=== PATIENT | male | born 1980 | race Caucasian/White ===

== ENCOUNTER → 2021-05-11 13:29 | Outpatient (BNVA) | payer OTHER, SELFPAY | PROVIDERS: Visit Provider Physician Assistant Medical | DX: S46.911A Strain of unspecified muscle, fascia and tendon at shoulder and upper arm level, right arm, initial encounter (principal); X50.1XXA Overexertion from prolonged static or awkward postures, initial encounter | CPT/HCPCS: 99202 ==

== ENCOUNTER → 2021-05-18 11:09 | Outpatient (BNVA) | payer OTHER, SELFPAY | PROVIDERS: Visit Provider Internal Medicine | DX: M79.10 Myalgia, unspecified site (principal); M79.622 Pain in left upper arm; M79.621 Pain in right upper arm | CPT/HCPCS: 99213 ==

== ENCOUNTER → 2021-05-25 12:58 | Outpatient (BNVA) | payer OTHER, SELFPAY | PROVIDERS: Visit Provider Internal Medicine | DX: M79.18 Myalgia, other site (principal) | CPT/HCPCS: 99213 ==

== ENCOUNTER → 2021-06-15 14:14 | Outpatient (BNVA) | payer OTHER, SELFPAY | PROVIDERS: Visit Provider Internal Medicine | DX: S66.912D Strain of unspecified muscle, fascia and tendon at wrist and hand level, left hand, subsequent encounter (principal); S66.911D Strain of unspecified muscle, fascia and tendon at wrist and hand level, right hand, subsequent encounter; X58.XXXD Exposure to other specified factors, subsequent encounter | CPT/HCPCS: 99213 ==

== ENCOUNTER → 2021-07-06 13:27 | Outpatient (BNVA) | payer OTHER, SELFPAY | PROVIDERS: Visit Provider Internal Medicine | DX: M25.532 Pain in left wrist (principal); M25.531 Pain in right wrist; M79.632 Pain in left forearm; M79.631 Pain in right forearm | CPT/HCPCS: 99213 ==

== ENCOUNTER → 2021-07-20 13:56 | Outpatient (BNVA) | payer OTHER, SELFPAY | PROVIDERS: Visit Provider Internal Medicine | DX: M25.532 Pain in left wrist (principal); M25.531 Pain in right wrist; M79.632 Pain in left forearm; M79.631 Pain in right forearm | CPT/HCPCS: 99213 ==

== ENCOUNTER → 2021-07-27 13:02 | Outpatient (BNVA) | payer OTHER, SELFPAY | PROVIDERS: Visit Provider Internal Medicine | DX: M25.532 Pain in left wrist (principal); M25.531 Pain in right wrist | CPT/HCPCS: 99213 ==

== ENCOUNTER → 2021-08-10 13:59 | Outpatient (BNVA) | payer OTHER, SELFPAY | PROVIDERS: Visit Provider Internal Medicine | DX: M25.532 Pain in left wrist (principal); M25.531 Pain in right wrist | CPT/HCPCS: 99213 ==